=== PATIENT | male | born 1950 | race Caucasian/White ===

== ENCOUNTER 2023-08-28 07:00 | Day surgery (SDC) | payer MEDICARE ==
[~2023-08-28 07:00] MED LIST: Lactated Ringers 1,000 ML IV SCH; Sodium Chloride 0.9% 10 ML Syringe FLUSH PRN; Sodium Chloride 0.9% 10 ML Syringe FLUSH SCH
[2023-08-28] MEDS ORDERED: Midazolam 1 MG/ML 2 ML SDV ONE (07:43)
[2023-08-28] MEDS ORDERED: HYDROmorphone 0.5 MG/0.5 ML Syringe IVPUSH PRN (07:44)
[2023-08-28] MEDS ORDERED: Ondansetron 4 MG/2 ML SDV IVPUSH PRN (07:44)
[2023-08-28] MEDS ORDERED: fentaNYL 100 MCG/2 ML SDV IVPUSH PRN (07:44)
[2023-08-28] MEDS ORDERED: Propofol 200 MG/20 ML SDV ONE ×2 (07:45→07:48)
[2023-08-28] MEDS ORDERED: ceFAZolin 2 GM Vial ONE (07:45)
[2023-08-28] MEDS ORDERED: Lidocaine 1% 2 ML ONE (07:45)
[2023-08-28] MEDS ORDERED: fentaNYL 100 MCG/2 ML SDV ONE (07:48)
[2023-08-28] MEDS ORDERED: Lactated Ringers 1,000 ML IV ONE (09:00)
[2023-08-28] MEDS: Morphine 8 MG, EPINEPHrine 0.3 MG, Cefuroxime 750 MG, Ketorolac 30 MG, Sodium Chloride ... PRN ×10 (09:57→10:13)
[2023-08-28] MEDS: Tranexamic Acid 1,000 MG/10 ML Vial ONE ×2 (09:58→10:14)
[2023-08-28] MEDS: Vancomycin 1 GM SDV ONE ×2 (09:59→10:14)
[2023-08-28] MEDS ORDERED: Acetaminophen/HYDROcodone 325-5 MG Tab PO PRN (11:12)
== END 2023-08-28 14:43 | disposition home or self-care (01) ==
LOC: JD.SDS 07:00
PROVIDERS: ATTEND Orthopaedic Surgery
DX: M16.11 Unilateral primary osteoarthritis, right hip (principal); K21.9 Gastro-esophageal reflux disease without esophagitis; Z87.891 Personal history of nicotine dependence; Z91.013 Allergy to seafood
CPT/HCPCS: 0055T; 27130; 36415; 73501; 86850; 86900; 86901; 97110; 97116; 97161; A9270; C1713; C1776; J0171; J0690; J0697; J1885; J2250; J2270; J2704; J3010; J3370; J7030; J7120; 01214; 99100; J3490